=== PATIENT | female | born 1980 | race Two or more races ===

== ENCOUNTER 2017-07-01 16:16 | Emergency (ER) | payer OTHER ==
[~2017-07-01] VITALS: Ht 162.6 cm; Wt 84.1 kg
[2017-07-01 16:17] VITALS: BP 128/82
== END 2017-07-01 16:36 | disposition home or self-care (01) ==
LOC: ED 16:30
DX: B86 Scabies (principal); F17.200 Nicotine dependence, unspecified, uncomplicated
CPT/HCPCS: 99283